=== PATIENT | male | born 1975 | race Caucasian/White ===

== ENCOUNTER 2017-07-10 10:47 | Emergency (ER) | payer BC, OTHER ==
[~2017-07-10] VITALS: Ht 177.8 cm; Wt 106.1 kg
[2017-07-10 10:51] VITALS: TEMP 36.9; Ht 177.8 cm; Wt 106.1 kg
[2017-07-10] MEDS ORDERED: IBUPROFEN 600 MG TAB PO STA (11:08)
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
[2017-07-10 12:41] VITALS: BP 153/92; PULSE 69; O2SAT 95
== END 2017-07-10 12:41 | disposition home or self-care (01) ==
LOC: C.EDB 10:49 → C.EDD 12:41
DX: S70.12XA Contusion of left thigh, initial encounter (principal); V89.9XXA Person injured in unspecified vehicle accident, initial encounter; G47.30 Sleep apnea, unspecified